=== PATIENT | female | born 1965 | race Caucasian/White ===

== ENCOUNTER 2019-06-24 16:12 | Emergency (ER) | payer SELFPAY ==
[~2019-06-24] VITALS: Ht 167.6 cm; Wt 121.0 kg
[2019-06-24] MEDS ORDERED: KETOROLAC 60MG/2ML VIAL IM ONE (17:00)
[2019-06-24] MEDS ORDERED: LIDOCAINE HCL/EPINEPHRINE 1%-EPI 1:100,000 30 ML VIAL INFIL ONE (17:00)
[2019-06-24] MEDS ORDERED: LIDOCAINE HCL/EPINEPHRINE 1%-EPI 1:100,000 20 ML VIAL INFIL SCH (17:05)
[2019-06-24 17:09] VITALS: BP 138/86
== END 2019-06-24 18:45 | disposition home or self-care (01) ==
LOC: ER 16:12
DX: I83.891 Varicose veins of right lower extremity with other complications (principal); R03.0 Elevated blood-pressure reading, without diagnosis of hypertension; M25.572 Pain in left ankle and joints of left foot; Z91.81 History of falling
CPT/HCPCS: 12001; 96372; 99283; J1885; J3490

== ENCOUNTER 2021-07-03 06:57 | Emergency (ER) | payer OTHER ==
[~2021-07-03] VITALS: Ht 167.6 cm; Wt 135.0 kg
[2021-07-03] MEDS ORDERED: BO1 TP (08:03)
[2021-07-03 08:12] VITALS: BP 127/85
== END 2021-07-03 08:13 | disposition home or self-care (01) ==
LOC: ER 07:09
DX: I83.93 Asymptomatic varicose veins of bilateral lower extremities (principal); Z98.890 Other specified postprocedural states
CPT/HCPCS: 99282